=== PATIENT | female | born 1980 | race Caucasian/White ===

== ENCOUNTER 2025-02-01 19:54 | Emergency (ER) | payer BC ==
[~2025-02-01] VITALS: Ht 165.1 cm; Wt 89.2 kg
--- NOTE | 2025-02-01 20:24 | Physician Documentation ---
History of Present Illness General Chief Complaint: Medical Clearance Stated Complaint: MED CLEARANCE Time Seen by MD: 20:23 History of Present Illness Initial Comments The patient is a 44-year-old female who is in police custody and admits to recent ETOH use, patient was found to have elevated blood pressure when she was being booked in the custodial was sent for evaluation. Patient states she has has a history of elevated blood pressure but has not been on medication for the last four years. Patient states she has been drinking a lot of caffeine and does admit to alcohol use and occasional marijuana use. The patient denies any chest pain or shortness of breath. Patient denies any illicit drug use other than marijuana Medication Reconciliation Allergies: Coded Allergies: No Known Allergies (Unverified , 02/01/25) Review of Systems All Other Systems at this time: Reviewed and Negative Physical Exam Physical Exam Vital Signs: Temperature: 98.2, Source: Temporal, Heart Rate: 92, Respiratory Rate: 16, BP: 174/121, Pulse Oximetry: 98, Weight: 89.200 Oxygen Flow Rate: 0 Physical Exam VITALS: Reviewed and as above. GENERAL: Alert, no apparent distress. HEENT: Normocephalic, atraumatic, PERRL, EOMI, dry mucosa, no erythema RESPIRATORY: Lungs clear, normal breath sounds, no respiratory distress. CHEST: No accessory muscle use, no retractions CV: Regular rate, rhythm, no edema, no murmur, No: JVD GI: Soft, non-tender, bowels sounds present, no rebound, guarding, or rigidity BACK: No CVA tenderness, or swelling MUSCULOSKELETAL: No deformities, no edema SKIN: Warm and dry, no rash NEURO: Oriented x4, No motor or sensory deficit PSYCH: Normal mood and affect, no agitation Progress Results/Orders Results/Orders Vital Signs 02/01/25 20:00 Temp 98.2 Pulse 92 Resp 16 B/P (MAP) 174/121 Pulse Ox 98 O2 Flow Rate 0 Medical Decision Making Additional information obtaine: other Findings The patient presents for evaluation for hypertension the patient is well- appearing in no distress with no complaints of chest pain or shortness of breath the patient will be given a dose of metoprolol orally she has been medically c leared for incarceration. Her pulse ox oximetry was interpreted as adequate and normal. Her prior hospitalizations were reviewed Differential Diagnosis High blood pressure, high blood pressure secondary to medications or caffeine. Departure Time of Disposition: 20:31 Disposition: 01 HOME / SELF CARE / HOMELESS Impression: Primary Impression: General medical exam Discharge Instructions: Medical Screening Exam Additional Instructions: Follow up with your primary care providers soon as possible for the high blood pressure. You are medically cleared for incarceration. Referrals: NO PRIMARY CARE PROVIDER (PCP) SHONA RITCHIE MD Feb 01, 2025 20:24
[2025-02-01 20:59] VITALS: BP 154/99; PULSE 85; RESP 18; TEMP 98.6; O2SAT 99
== END 2025-02-01 21:00 | disposition home or self-care (01) ==
LOC: ER 19:55
DX: Z00.00 Encounter for general adult medical examination without abnormal findings (principal); F12.90 Cannabis use, unspecified, uncomplicated; I10 Essential (primary) hypertension
CPT/HCPCS: 99283